=== PATIENT | female | born 1990 | race Caucasian/White ===

== ENCOUNTER 2018-10-11 03:32 | Emergency (ER) | payer SELFPAY ==
[~2018-10-11] VITALS: Ht 157.5 cm; Wt 63.0 kg
[2018-10-11] MEDS ORDERED: LIDOCAINE HCL 2% JELLY 5ML TOP ONE (06:30)
[2018-10-11] MEDS ORDERED: BACITRACIN ZINC OINT UDPKT TOP ONE (06:45)
[2018-10-11] MEDS ORDERED: LIDOCAINE 1%/EPI 1:100,000 10 ML VIAL IJ ONE (06:45)
[2018-10-11] MEDS ORDERED: LIDOCAINE HCL/EPINEPHRINE 1%-EPI 1:100,000 20 ML VIAL IJ SCH (06:51)
[2018-10-11] MEDS ORDERED: TETANUS, DIPHTHERIA, PERTUSSIS VAC/PF 0.5ML (>7YR OLD) IM ONE (08:00)
[2018-10-11 08:34] VITALS: BP 122/86
== END 2018-10-11 08:35 | disposition home or self-care (01) ==
LOC: ER 05:42
DX: S01.81XA Laceration without foreign body of other part of head, initial encounter (principal); F12.10 Cannabis abuse, uncomplicated; X58.XXXA Exposure to other specified factors, initial encounter; Y93.89 Activity, other specified; Y92.89 Other specified places as the place of occurrence of the external cause; Y99.8 Other external cause status
CPT/HCPCS: 12013; 90471; 90715; 99283; J3490